=== PATIENT | male | born 2000 | race Caucasian/White ===

== ENCOUNTER 2020-05-01 16:34 | Outpatient (CLI) | payer OTHER, SELFPAY ==
--- NOTE | ~2020-05-01 | XR_ITS ---
EXAMINATION: XR hand RT min 3V EXAM DATE: 05/01/2020 16:57 INDICATION: Initial encounter following injury, with pain of the right hand, 4th digit. TECHNIQUE: Right hand frontal, lateral and oblique projections obtained and reviewed. Comparison is m alexy to prior examination from 05/01/2020. FINDINGS: Right metacarpal bones are unremarkable. There is acute closed posttraumatic fracture at the right 4th middle phalangeal dorsal plate, without displacement. There is overlying soft tissue sw elling. No other suspicious findings. IMPRESSION: Right 4th middle phalangeal acute nondisplaced dorsal plate fracture. Reviewed, dictated and finalized at location A. IMPRESSION: Right 4th middle phalangeal acute nondisplaced dorsal plate fractu re.
== END 2020-05-01 16:35 | disposition home or self-care (01) ==
LOC: CHSIMG 16:38
PROVIDERS: PCP Internal Medicine; Visit Provider Internal Medicine
DX: S69.91XA Unspecified injury of right wrist, hand and finger(s), initial encounter (principal)
CPT/HCPCS: 73130

== ENCOUNTER 2020-06-14 07:27 | Outpatient (CLI) | payer OTHER, SELFPAY ==
[2020-06-15 02:12] LABS: SARS-CoV-2 RNA PCR Negative
== END 2020-06-14 07:28 | disposition home or self-care (01) ==
LOC: CHSLAB 07:30
PROVIDERS: PCP Internal Medicine; Visit Provider Internal Medicine
DX: Z20.828 Contact with and (suspected) exposure to other viral communicable diseases (principal)
CPT/HCPCS: 87635; C9803; U0003

== ENCOUNTER 2020-09-27 17:32 | Outpatient (CLI) | payer OTHER, SELFPAY ==
[2020-09-27 18:56] LABS: SARS-CoV-2 Ag Positive (Negative)
== END 2020-09-27 17:33 | disposition home or self-care (01) ==
PROVIDERS: PCP Internal Medicine; Visit Provider Internal Medicine
DX: U07.1 COVID-19 (principal)
CPT/HCPCS: 87426; C9803

== ENCOUNTER 2021-07-03 11:35 | Outpatient (CLI) | payer OTHER, SELFPAY ==
[2021-07-03 11:53] LABS: Basophils Absolute Auto 0.04 K/mm3 (0.00-0.10); Basophils Percent Auto 0.3 % (0.0-1.0); Eosinophils Absolute Auto 0.13 K/mm3 (0.02-0.50); Eosinophils Percent Auto 1.1 % (1.0-6.0); Hematocrit 46.4 % (40.0-54.0); Hemoglobin 16.3 g/dL (14.0-18.0); Immature Granulocyte Absolute 0.05 K/mm3 (0.00-0.00); Immature Granulocyte Percent A 0.4 % (0.0-0.0); Lymphocytes Absolute Auto 1.29 K/mm3 (1.10-4.50); Mean Corpuscular HGB Conc 35.1 g/dL (32.0-36.0); Mean Corpuscular Hemoglobin 33.1 pg (27.0-31.0); Mean Corpuscular Volume 94.3 fL (78.0-102.0); Mean Platelet Volume 9.9 fl (8.7-11.0); Monocytes Absolute Auto 0.87 K/mm3 (0.10-0.90); Monocytes Percent Auto 7.4 % (2.0-11.0); Neutrophils Absolute Auto 9.3 K/mm3 (1.7-7.2); Neutrophils Percent Auto 79.8 % (50.0-70.0); Platelet Count Result 241 K/mm3 (150-420); Red Blood Count 4.92 M/mm3 (4.70-6.10); Red Cell Distribution Width 11.8 % (11.6-14.4); White Blood Count 11.7 K/mm3 (4.8-10.8)
[2021-07-03 12:19] LABS: Alanine Aminotransferase 39 U/L (16-63); Albumin Level 4.6 g/dL (3.4-5.0); Alkaline Phosphatase 96 U/L (46-116); Anion Gap 12 mmol/L (8-16); Aspartate Amino Transferase 22 U/L (15-37); Bilirubin,Total 0.4 mg/dL (0.00-1.00); Blood Urea Nitrogen 14 mg/dL (7-18); Calcium 9.3 mg/dL (8.5-10.1); Carbon Dioxide 27 mmol/L (21-32); Chloride 101 mmol/L (98-108); Estimated Glomerular Filt Rate > 60; Glucose 87 mg/dL (70-99); Osmolality Calculated 289 mOsm/kg (285-295); Potassium 4.1 mmol/L (3.5-5.1); Sodium 140 mmol/L (136-145)
== END 2021-07-03 11:36 | disposition home or self-care (01) ==
LOC: CHSLAB 11:38
PROVIDERS: PCP Internal Medicine; Visit Provider Internal Medicine
DX: R19.7 Diarrhea, unspecified (principal)
CPT/HCPCS: 36415; 80053; 85025

== ENCOUNTER 2021-07-03 15:17 | Outpatient (CLI) | payer OTHER, SELFPAY ==
--- NOTE | ~2021-07-03 | CT_ITS ---
EXAMINATION: CT abdomen pelvis w con DATE: 07/03/2021 16:23 INDICATION: Right lower quadrant abdominal pain, elevated white blood cell count TECHNIQUE: Computed tomography (CT) of the abdomen and pelvis was performed with 100 cc Omnipaque 350 intravenous contrast. Automated exposure control and iterative reconstruction technique were employe d. Exam dose: 371.71 mGy-cm total exam DLP. COMPARISON: None. FINDINGS: The lung bases are clear. Normal heart size. No pericardial or pleural effusion. The liver, gallbladder, spleen, pancreas, bile ducts, pancreatic duct and adrenal glands are unremark able. No renal mass lesion or urinary tract calculus or hydroureteronephrosis. Normal appendix. No bowel obstruction or intraperitoneal free air. The urinary bladder and prostate gland are unremarkable. Normal caliber of the abdominal aorta. No intraperitoneal or retroperitoneal or pelvic mass lesion or adenopathy or ascites. Bilateral L5 pars interarticularis defects, without associated spondylolisthesis. IMPRESSION: Normal appendix Bilateral L5 pars interarticularis defects Reviewed, dictated and finalized at [facility]. Reviewed, dictated and finalized at location B.
== END 2021-07-03 15:18 | disposition home or self-care (01) ==
PROVIDERS: PCP Internal Medicine; Visit Provider Internal Medicine
DX: R10.31 Right lower quadrant pain (principal); D72.829 Elevated white blood cell count, unspecified; R19.33 Right lower quadrant abdominal rigidity
CPT/HCPCS: 74177; Q9967

== ENCOUNTER 2022-02-25 10:56 | Outpatient (CLI) | payer OTHER, SELFPAY ==
[2022-02-25 11:34] LABS: SARS-CoV-2 Ag Positive (Negative)
== END 2022-02-25 10:57 | disposition home or self-care (01) ==
PROVIDERS: PCP Internal Medicine; Visit Provider Internal Medicine
DX: U07.1 COVID-19 (principal); J06.9 Acute upper respiratory infection, unspecified
CPT/HCPCS: 87426; C9803